=== PATIENT | female | born 1960 | race Caucasian/White ===

== ENCOUNTER 2017-05-29 09:31 | Emergency (ER) | payer BC, OTHER ==
[~2017-05-29] VITALS: Ht 157.5 cm; Wt 48.9 kg
[~2017-05-29 09:31] MED LIST: SULF-183 PO
[2017-05-29] MEDS ORDERED: CAFF200T13 PO (09:48)
[2017-05-29 09:51] VITALS: O2SAT 98
[2017-05-29] MEDS ORDERED: SODIUM CHLORIDE 0.9% 1000ML 1,000 ML IV STA (10:03)
[2017-05-29 10:08] VITALS: Ht 157.5 cm; Wt 48.9 kg
[2017-05-29 10:26] LABS: BASO % 0.3 %; BASO ABS # 0.03 K/uL (0-0.2); COMPLETE YES; EOS % 0.5 %; IG% 0.2 %; LYMPH % 21.2 %; LYMPH ABS # 2.22 K/uL (1.2-3.4); MEAN CELL VOLUME 92.4 fL (80-100); MEAN CORPUSCULAR HEMOGLOBIN 31.3 pg (25-34); MEAN CORPUSCULAR HGB CONC 33.9 g/dl (32-36); MEAN PLATELET VOLUME 9.8 fL (7.4-10.4); MONO % 6.9 %; NEUT % 70.9 %; PLATELET COUNT 268 K/uL (130-400); RED BLOOD COUNT 4.98 M/uL (4.2-5.4); WHITE BLOOD COUNT 10.46 K/uL (4.8-10.8)
[2017-05-29 10:34] LABS: PARTIAL THROMBOPLASTIN RATIO 1.1; PROTHROMBIN TIME (PATIENT) 10.7 SECONDS (9.0-12.0)
--- NOTE | 2017-05-29 10:45 | DIAGNOSTIC IMAGING REPORT ---
CHEST ONE VIEW PORTABLE HISTORY: 57 years-old Female EVALUATE WEAKNESS acute weakness and dizziness. COMPARISON: Chest radiograph 03/09/2013 TECHNIQUE: Portable upright AP view of the chest FINDINGS: Cardiac mediastinal and hilar silhouettes are within normal limits. There is no pneumothorax, pleural effusion or focal airspace consolidation. No overt pulmonary edema. Lungs are mildly hyperinflated. The bones are grossly intact. IMPRESSION: No acute cardiopulmonary process. The above report was generated using voice recognition software. It may contain grammatical, syntax or spelling errors. Electronically signed by: Chun Huizar M.D. 05/29/2017 10:44 AM Dictated Date/Time: 05/29/2017 10:43 AM
[2017-05-29] MEDS ORDERED: MECLIZINE HCL 25 MG TAB PO STA (10:49)
[2017-05-29 10:51] LABS: ALT/SGPT 31 U/L (12-78); BLOOD UREA NITROGEN 7 mg/dl (7-18); BUN/CREATININE RATIO 8.5 (10-20); CALCIUM 9.6 mg/dl (8.5-10.1); CARBON DIOXIDE 24 mmol/L (21-32); CHLORIDE 106 mmol/L (98-107); CREATININE 0.82 mg/dl (0.60-1.20); GLUCOSE 111 mg/dl (70-99); POTASSIUM 3.4 mmol/L (3.5-5.1); SODIUM 141 mmol/L (136-145)
[2017-05-29 10:59] LABS: ALKALINE PHOSPHATASE 90 U/L (45-117); AST/SGOT 27 U/L (15-37); THYROID STIMULATING HORMONE 0.669 uIu/ml (0.300-4.500)
--- NOTE | 2017-05-29 11:24 | DIAGNOSTIC IMAGING REPORT ---
HEAD CT NONCONTRAST CT DOSE: 638.56 mGycm HISTORY: dizziness TECHNIQUE: Multiaxial CT images of the head were performed without the use of intravenous contrast. Automated exposure control was utilized for this study. A dose lowering technique was utilized adhering to the principles of ALARA. Comparison: None. Findings: The paranasal sinuses and mastoid air cells are clear. The calvarium and skull base are intact. The ventricles and sulci are within normal limits. There is no mass, hematoma, midline shift, or acute infarct. Impression: No acute intracranial abnormality. Electronically signed by: Alvarez Pena M.D. 05/29/2017 11:23 AM Dictated Date/Time: 05/29/2017 11:16 AM
[2017-05-29 13:12] LABS: URINE APPEARANCE CLEAR (CLEAR); URINE BILIRUBIN NEG (NEG); URINE COLOR YELLOW; URINE NITRITE NEG (NEG); URINE SPECIFIC GRAVITY 1.007 (1.000-1.030); UROBILINOGEN NEG (NEG)
[2017-05-29 13:14] LABS: MANUAL MICROSCOPIC REQUIRED? NO; REVIEW REQ? NO
[2017-05-29] MEDS ORDERED: MECL1TAB42 PO (14:03)
[2017-05-29 14:10] VITALS: BP 138/59; PULSE 64; TEMP 36.8; O2SAT 98
--- NOTE | 2017-05-29 15:28 | EMERGENCY ROOM VISIT NOTE ---
History Report prepared by Alexis: Katty Cantu Under the Supervision of: Dr. Kadeem Garnett M.D. First contact with patient: 10:03 Chief Complaint: DIZZY Stated Complaint: DIZZY,LIGHTHEADED,SHAKEY,BP 140/80,BS 114 Nursing Triage Summary: pt states last night had episode of dizziness with "strange feeling" in her head, Pt states hx dm type II, checked blood glucose at that time with result of 171. Pt states feeling stressed at this time in her life, elevated bp of 171/ 82. Pt states shakiness at the time of episode, no shakiness noted at this time. History of Present Illness The patient is a 57 year old female who presents to the Emergency Room with complaints of persistent dizziness that began last evening. The patient states that she was initially feeling fine last evening when she went to take her daughter to work last night. She states that she was driving home when she developed a weird feeling in her head. The patient describes the feeling as a dizziness and room spinning sensation. She reports difficulty falling asleep last night, noting that closing her eyes worsened her symptoms. The patient states that she felt foggy and shaky at the time. She additionally reports blurred vision. The patient reports a slight headache in the back of her head at this time. She notes some sinus drainage for the past week. The patient states that she felt near syncopal last evening. She denies any history of passing out. The patient states that this happened to her once before. The patient denies any history of hypertension, but reports a history of diabetes. She reports a surgical history of a tonsillectomy, D&C, and right knee surgery. Pt denies LOC, fevers, chills, diaphoresis, neck pain, chest pain, breathing difficulties, nausea, vomiting, abdominal pain, back pain, melena, hematochezia , urinary symptoms, numbness, weakness, lymphadenopathy, rash, or other complaints. Source of History: patient Onset: last evneing Position: other (global) Quality: other (dizziness) Timing: other (persistent) Modifying Factors (Worsening): other (closing her eyes) Associated Symptoms: + headache Note: Associated Symptoms: room spinning sensation, difficulty falling asleep, foggy, shaky, blurred vision, sinus drainage Review of Systems See HPI for pertinent positives and negatives. A total of ten systems were reviewed and were otherwise negative. Past Medical & Surgical Medical Problems: (1) Gestational diabetes Surgical Problems: (1) H/O dilation and curettage (2) S/P tonsillectomy Family History Cancer Diabetes mellitus Heart disease Hypertension Social History Smoking Status: Current Every Day Smoker Smokeless Tobacco Use: No Alcohol Use: occasionally Marital Status: Occupation Status: employed Current/Historical Medications Scheduled PRN Caffeine (Caffeine), 200 MG PO UD PRN for ALERTNESS Meclizine Hcl (Meclizine Hcl), 25 MG PO TID PRN for Dizziness Allergies Coded Allergies: Niacin (Unverified Allergy, Unknown, REDNESS, FACE GETS FLUSHED, 05/29/17) Physical Exam Vital Signs Date Time Temp Pulse Resp B/P (MAP) Pulse Ox O2 Delivery O2 Flow Rate FiO2 05/29/17 14:10 36.8 64 16 138/59 98 05/29/17 13:55 64 16 138/59 98 Room Air 05/29/17 13:12 72 05/29/17 12:57 74 14 138/59 98 Room Air 05/29/17 12:27 73 16 149/55 97 Room Air 05/29/17 11:27 78 18 140/62 99 Room Air 05/29/17 10:28 85 16 145/71 98 Room Air 05/29/17 10:24 73 150/61 87 151/61 85 145/71 05/29/17 10:10 83 05/29/17 09:51 98 Room Air 05/29/17 09:33 36.8 92 20 177/80 97 Room Air Physical Exam GENERAL: Awake, alert, well appearing, no distress HENT: Normocephalic, atraumatic. TM's normal. Oropharynx unremarkable. EYES: PERRL. EOMI. Normal conjunctiva. Sclera non-icteric. NECK: Supple. No nuchal rigidity. FROM. No JVD or bruit. RESPIRATORY: CTA CARDIAC: RRR. No murmur. ABDOMEN: Soft, non distended. No tenderness to palpation. No rebound or guarding. No masses. RECTAL: Deferred. MUSCULOSKELETAL: Unremarkable. No edema. No discoloration. Gross motor strength symmetric. NEURO: Cranial nerves 2-12 grossly intact. Normal sensorium. No sensory or motor deficits noted. Speech normal. No pronator drift. Normal rapid alternating movements, normal heel to hughes. SKIN: No rash or jaundice noted. LYMPH: No adenopathy. Medical Decision & Procedures ER Provider Diagnostic Interpretation: Radiology results as stated below per my review and radiologist interpretation: CHEST ONE VIEW PORTABLE HISTORY: 57 years-old Female EVALUATE WEAKNESS acute weakness and dizziness. COMPARISON: Chest radiograph 03/09/2013 TECHNIQUE: Portable upright AP view of the chest FINDINGS: Cardiac mediastinal and hilar silhouettes are within normal limits. There is no pneumothorax, pleural effusion or focal airspace consolidation. No overt pulmonary edema. Lungs are mildly hyperinflated. The bones are grossly intact. IMPRESSION: No acute cardiopulmonary process. The above report was generated using voice recognition software. It may contain grammatical, syntax or spelling errors. Electronically signed by: Chun Huizar M.D. 05/29/2017 10:44 AM Dictated Date/Time: 05/29/2017 10:[address] CT DOSE: 638.56 mGycm HISTORY: dizziness TECHNIQUE: Multiaxial CT images of the head were performed without the use of intravenous contrast. Automated exposure control was utilized for this study. A dose lowering technique was utilized adhering to the principles of ALARA. Comparison: None. Findings: The paranasal sinuses and mastoid air cells are clear. The calvarium and skull base are intact. The ventricles and sulci are within normal limits. There is no mass, hematoma, midline shift, or acute infarct. Impression: No acute intracranial abnormality. Electronically signed by: Alvarez Pena M.D. 05/29/2017 11:23 AM Dictated Date/Time: 05/29/2017 11:16 AM Laboratory Results 05/29/17 10:00 Red Blood Count 4.98, Mean Corpuscular Volume 92.4, Mean Corpuscular Hemoglobin 31.3, Mean Corpuscular Hemoglobin Concent 33.9, Mean Platelet Volume 9.8, Neutrophils (%) (Auto) 70.9, Lymphocytes (%) (Auto) 21.2, Monocytes (%) (Auto) 6.9, Eosinophils (%) (Auto) 0.5, Basophils (%) (Auto) 0.3, Neutrophils # (Auto) 7.42, Lymphocytes # (Auto) 2.22, Monocytes # (Auto) 0.72, Eosinophils # (Auto) 0.05, Basophils # (Auto) 0.03 05/29/17 10:00 Test 05/29/17 10:00 White Blood Count 10.46 K/uL (4.8-10.8) Red Blood Count 4.98 M/uL (4.2-5.4) Hemoglobin 15.6 g/dL (12.0-16.0) Hematocrit 46.0 % (37-47) Mean Corpuscular Volume 92.4 fL (80-100) Mean Corpuscular Hemoglobin 31.3 pg (25-34) Mean Corpuscular Hemoglobin Concent 33.9 g/dl (32-36) Platelet Count 268 K/uL (130-400) Mean Platelet Volume 9.8 fL (7.4-10.4) Neutrophils (%) (Auto) 70.9 % Lymphocytes (%) (Auto) 21.2 % Monocytes (%) (Auto) 6.9 % Eosinophils (%) (Auto) 0.5 % Basophils (%) (Auto) 0.3 % Neutrophils # (Auto) 7.42 K/uL (1.4-6.5) Lymphocytes # (Auto) 2.22 K/uL (1.2-3.4) Monocytes # (Auto) 0.72 K/uL (0.11-0.59) Eosinophils # (Auto) 0.05 K/uL (0-0.5) Basophils # (Auto) 0.03 K/uL (0-0.2) RDW Standard Deviation 42.3 fL (36.4-46.3) RDW Coefficient of Variation 12.6 % (11.5-14.5) Immature Granulocyte % (Auto) 0.2 % Immature Granulocyte # (Auto) 0.02 K/uL (0.00-0.02) Prothrombin Time 10.7 SECONDS (9.0-12.0) Prothromb Time International Ratio 1.0 (0.9-1.1) Activated Partial Thromboplast Time 27.5 SECONDS (21.0-31.0) Partial Thromboplastin Ratio 1.1 Urine Color YELLOW Urine Appearance CLEAR (CLEAR) Urine pH 6.0 (4.5-7.5) Urine Specific [place] 1.007 (1.000-1.030) Urine Protein NEG (NEG) Urine Glucose (UA) NEG (NEG) Urine Ketones NEG (NEG) Urine Occult Blood NEG (NEG) Urine Nitrite NEG (NEG) Urine Bilirubin NEG (NEG) Urine Urobilinogen NEG (NEG) Urine Leukocyte Esterase NEG (NEG) Anion Gap 11.0 mmol/L (3-11) Est Creatinine Clear Calc Drug Dose 59.1 ml/min Estimated GFR () 92.7 Estimated GFR (Non- 80.0 BUN/Creatinine Ratio 8.5 (10-20) Calcium Level 9.6 mg/dl (8.5-10.1) Magnesium Level 2.0 mg/dl (1.8-2.4) Total Bilirubin 0.4 mg/dl (0.2-1) Direct Bilirubin 0.2 mg/dl (0-0.2) Aspartate Amino Transf (AST/SGOT) 27 U/L (15-37) Alanine Aminotransferase (ALT/SGPT) 31 U/L (12-78) Alkaline Phosphatase 90 U/L (45-117) Total Creatine Kinase 139 U/L (26-192) Creatine Kinase MB 1.4 ng/ml (0.5-3.6) Creatine Kinase MB Ratio 1.0 (0-3.0) Troponin I < 0.015 ng/ml (0-0.045) Total Protein 7.9 gm/dl (6.4-8.2) Albumin 4.5 gm/dl (3.4-5.0) Lipase 154 U/L (73-393) Thyroid Stimulating Hormone (TSH) 0.669 uIu/ml (0.300-4.500) Laboratory results reviewed by me Medications Administered Medications (Trade) Dose Ordered Sig/Francesco Route Start Time Stop Time Status Last Admin Dose Admin Sodium Chloride 1,000 ml @ 125 mls/hr Q8H STAT IV 05/29/17 10:03 05/29/17 14:41 DC 05/29/17 10:12 125 MLS/HR Meclizine HCl (Antivert Tab) 25 mg NOW STAT PO 05/29/17 10:49 05/29/17 10:50 DC 05/29/17 10:55 25 MG ECG Indication: other (dizzy) Rate (beats per minute): 71 Rhythm: normal sinus Findings: no acute ischemic change, no ectopy, other (LVH by voltage criteria) ED Course 1003: Ordered Sodium Chloride 1000 ml @ 125 mls/hr IV. 1033: The patient was evaluated in room A4B. A complete history and physical exam was performed. 1049: Ordered Meclizine HCl 25 mg PO. 1325: I reevaluated the patient and she is resting comfortably. I discussed the exam findings with her and I discussed the treatment plan. She verbalized complete understanding and agreement. She is ready to go home. Medical Decision Prior records/ancillary studies reviewed. Triage Nursing notes reviewed and agree them. The patient's history was concerning for dizziness. Differential diagnosis: Etiologies such as benign positional vertigo, tumor, infection, hypoglycemia, electrolyte abnormalities, cardiac sources, intracerebral event, toxicologic, neurologic, as well as others were entertained. Physical examination: As above. No pathologic nystagmus. ER treatment provided: IV hydration Oral meclizine On reassessment the patient felt well. Ambulatory trial was normal. Diagnostics interpretation by me: ECG: Normal sinus rhythm without ischemic change or evidence of dysrhythmia. The labs revealed a normal CBC and chemistry panel. CT scan of the head was unremarkable. It appears the patient had an episode of benign -positional vertigo. Clinically she is doing well. Patient also notes being under significant stress and asked if this may be compounding the problem. It is possible. Clinically she is doing much better at this time I discussed conservative management. The patient feels very comfortable with this. She will follow-up with her primary physician. By the evaluation outlined above emergent etiologies such as infection, hypoglycemia, electrolyte abnormalities, cardiac sources, intracerebral event, toxicologic, neurologic,as well as others were deemed relatively unlikely. The patient was informed about the findings as listed above. All questions were answered and she was pleased with the treatment. Return instructions were outlined and the patient was discharged in stable condition. Outpatient prescription management: Meclizine Referral: The patient was referred back to her primary care physician for follow-up in 2 to 3 days for a recheck of the current condition. Medication Reconcilliation Current Medication List: was personally reviewed by me Blood Pressure Screening Patient's blood pressure: Elevated blood pressure Blood pressure disposition: Referred to PCP Impression Primary Impression: Dizziness Scribe Attestation The scribe's documentation has been prepared under my direction and personally reviewed by me in its entirety. I confirm that the note above accurately reflects all work, treatment, procedures, and medical decision making performed by me. Departure Information Dispostion Home / Self-Care Prescriptions Meclizine Hcl (MECLIZINE HCL) 25 Mg Tab 25 MG PO TID Y for Dizziness, #21 TAB Prov: Kadeem Garnett MD 05/29/17 Referrals Anusha Martinez D.O. (PCP) Forms HOME CARE DOCUMENTATION FORM, IMPORTANT VISIT INFORMATION Patient Instructions My [facility] Additional Instructions DIZZINESS INSTRUCTIONS: DO NOT drive, drink alcohol, operate machinery, or perform dangerous activities today. You were given medications in the ER that can affect your ability to safely function or operate a vehicle. You should not drive or perform any dangerous activities until your symptoms resolve. Meclizine 25mg: Take 1 pill every 8 hours as needed for dizziness or vertigo. Avoid alcohol, operating machinery or dangerous equipment, working on ladders or roofs, DRIVING, or situations where being under the influence may be dangerous Rest and drink plenty of fluids as tolerated. Continue current medications. If you have nausea or vomiting: Once your stomach is settled start with a clear liquid diet (jello, soup broth, etc.) and then advance as tolerated. You should avoid full, heavy meals for about 24 hrs from the time your symptoms resolved. Return to the ER immediately for worsening or persistent dizziness, vomiting, headache, fevers, chest pains, difficulty breathing, black or bloody stools, slurred speech, numbness, weakness, visual changes, worsening of your condition , or as needed. Follow up with your primary physician in 2-3 days for a recheck of your current condition.
== END 2017-05-29 14:11 | disposition home or self-care (01) ==
LOC: C.EDB 09:32 → C.EDA 14:11
DX: H81.10 Benign paroxysmal vertigo, unspecified ear (principal); F43.9 Reaction to severe stress, unspecified; E11.9 Type 2 diabetes mellitus without complications; F17.210 Nicotine dependence, cigarettes, uncomplicated; Z80.9 Family history of malignant neoplasm, unspecified; Z83.3 Family history of diabetes mellitus; Z82.49 Family history of ischemic heart disease and other diseases of the circulatory system